=== PATIENT | female | born 1965 | race African-American/Black ===

== ENCOUNTER 2016-08-07 08:48 | Emergency (ER) | payer BC ==
[2016-08-07 08:30] LABS: BASOPHILS 0.6 %; BASOPHILS ABSOLUTE 0.03 10/3/uL (0.0-0.16); EOSINOPHILS 2.4 %; EOSINOPHILS ABSOLUTE 0.12 10/3/uL (0.0-0.53); ER CBC TAT 0 Hrs 10 Mins; HEMATOCRIT 40.8 % (36.0-48.0); HEMOGLOBIN 13.9 g/dL (12.0-16.0); INTERNATIONAL NORMAL RATI 1.1 UNITS (-); LYMPHOCYTES 49.4 %; LYMPHOCYTES ABSOLUTE 2.51 10/3/uL (0.67-4.30); MEAN CORPUS HGB CONC 34.1 g/dL (32.0-36.0); MEAN CORPUSCULAR HEMOGLOB 29.9 pg (26.0-34.0); MEAN CORPUSCULAR VOLUME 87.7 fL (80-100); MEAN PLATELET VOLUME 8.8 fL (9.2-13.0); MONOCYTES 7.3 %; MONOCYTES ABSOLUTE 0.37 10/3/uL (0.21-1.20); NEUTROPHILS 40.3 %; NEUTROPHILS ABSOLUTE 2.05 10/3/uL (2.02-8.40); PARTIAL THROMBO TIME 29.9 SEC (22.5-37.2); PLATELET COUNT 265 10/3/uL (150-400); PROTIME (NOT ORD) 13.6 SEC (12.0-14.5); RBC DISTRIBUTION WIDTH 14.8 % (12.0-16.0); RED CELL COUNT 4.65 10/6/uL (4.0-5.6); WHITE BLOOD CELLS 5.1 10/3/uL (4.5-10.5)
[2016-08-07 08:31] LABS: MANUAL DIFF NO %
[2016-08-07 08:40] LABS: BUN (BLOOD UREA NITROGEN) 15 MG/DL (6-23); CALCIUM, SERUM 8.9 MG/DL (8.5-10.4); CHEST PAIN PROFILE TAT 0 Hrs 20 Mins; CHLORIDE, SERUM 108 MMOL/L (96-112); CO2 (CARBON DIOXIDE) 31 MMOL/L (24-34); CREATININE 0.67 MG/DL (0.55-1.02); GFR AFRICAN AMERICAN 117 ML/MIN (>=60); GFR NON AFRICAN AMERICAN 101 ML/MIN (>=60); GLUCOSE, SERUM 107 MG/DL (60-99); POTASSIUM, SERUM 3.9 MMOL/L (3.5-5.3); SODIUM, SERUM 142 MMOL/L (135-148); TROPONIN I <0.02 NG/ML (<0.05)
[~2016-08-07 08:48] MED LIST: ADVAIR INH; ASAB PO; CEFT5 PO; COREG12 PO; GLUCPH PO; LIPITOR10 PO; LORTAB 5 PO; MOBIC15 MG PO; PROAIR HFA INH; ZESTORETIC1 TA1 PO; ZOLOFT25 MG PO
== END 2016-08-07 09:56 | disposition home or self-care (01) ==
LOC: ER 08:48
PROVIDERS: Nurse Practitioner Family
DX: M25.511 Pain in right shoulder (principal); F32.9 Major depressive disorder, single episode, unspecified; F41.9 Anxiety disorder, unspecified; E11.9 Type 2 diabetes mellitus without complications; I10 Essential (primary) hypertension; F17.210 Nicotine dependence, cigarettes, uncomplicated; J45.909 Unspecified asthma, uncomplicated; Z86.73 Personal history of transient ischemic attack (TIA), and cerebral infarction without residual deficits; Z79.82 Long term (current) use of aspirin; Z79.84 Long term (current) use of oral hypoglycemic drugs; Z79.899 Other long term (current) drug therapy
CPT/HCPCS: 71010; 73030-RT; 80048; 83735; 84484; 85025; 85610; 85730; 93005; 96372; 99284; A9270-GY; J1885

== ENCOUNTER 2016-09-10 15:45 | Emergency (ER) | payer BC | END 2016-09-10 15:53 | disposition home or self-care (01) | LOC: ER 15:45 | DX: S93.601A Unspecified sprain of right foot, initial encounter (principal); J45.909 Unspecified asthma, uncomplicated; I10 Essential (primary) hypertension; F32.9 Major depressive disorder, single episode, unspecified; Z79.82 Long term (current) use of aspirin; F17.200 Nicotine dependence, unspecified, uncomplicated; Z79.891 Long term (current) use of opiate analgesic; Z79.899 Other long term (current) drug therapy; Z79.84 Long term (current) use of oral hypoglycemic drugs; W20.8XXA Other cause of strike by thrown, projected or falling object, initial encounter | CPT/HCPCS: 73620-RT; 99283; A9270-GY ==